=== PATIENT | male | born 1970 | race Caucasian/White ===

== ENCOUNTER 2021-08-27 14:17 | Inpatient (IN) | payer OTHER ==
[2021-08-27 15:45] VITALS: BMI 28.5
[2021-08-27] MEDS ORDERED: BISMUTH SUBSALICYLATE 524 MG/30 ML PO PRN (16:24)
[2021-08-27] MEDS ORDERED: IBUPROFEN 400 MG TABLET (FP) PO PRN (16:24)
[2021-08-27] MEDS ORDERED: MAGNESIUM CITRATE 300 ML BOTTLE PO PRN (16:24)
[2021-08-27] MEDS ORDERED: NICOTINE 10 MG CARTRIDGE (INHALER) IH PRN (16:24)
[2021-08-27] MEDS ORDERED: MAG HYDROX/AL HYDROX/SIMETH 30 ML UNIT-DOSE CUP PO PRN (16:24)
[2021-08-27] MEDS ORDERED: ACETAMINOPHEN 325 MG TABLET (FP) PO PRN (16:24)
[2021-08-27] MEDS ORDERED: METHOCARBAMOL 500 MG TABLET PO PRN (16:24)
[2021-08-27] MEDS ORDERED: diazePAM 5 MG TABLET PO PRN (16:24)
[2021-08-27] MEDS ORDERED: MAGNESIUM HYDROX 2400MG/30ML ORAL SUSPENSION 30 ML CUP PO PRN (16:24)
[2021-08-27] MEDS ORDERED: ONDANSETRON *ODT* 4 MG TABLET SL PRN (16:24)
[2021-08-27] MEDS ORDERED: MENTHOL/PHENOL 1 EACH UD MM PRN (16:24)
[2021-08-27] MEDS: diazePAM 5 MG TABLET PO SCH ×2 (18:20→22:29)
[2021-08-27] MEDS: hydrOXYzine PAMOATE 25 MG CAPSULE (FP) PO SCH ×2 (18:22→22:29)
[2021-08-27] MEDS: MELATONIN 5 MG TABLETS PO SCH (22:29)
[2021-08-27] MEDS: THIAMINE HCL 100 MG TABLET (FP) PO SCH (22:29)
[2021-08-28] MEDS: hydrOXYzine PAMOATE 25 MG CAPSULE (FP) PO SCH ×5 (06:07→22:21)
[2021-08-28] MEDS: diazePAM 5 MG TABLET PO SCH ×4 (06:08→22:21)
[2021-08-28] MEDS: PRENATAL VITAMINS W/ FOLIC ACID TABLET (FP) PO SCH (10:28)
[2021-08-28 12:42] LABS: HEMATOCRIT 41.2 % (35.4-49); HEMOGLOBIN 14.2 GM/dL (11.7-16.9); MCH 31.4 pg (25.7-33.7); MCHC 34.5 g/dl (32.0-35.9); MEAN CELL VOLUME 91.1 fl (80-96); MEAN PLT VOLUME 9.8 fl (7.5-11.1); PLATELET COUNT 141 10^3/uL (134-434); RBC 4.52 M/mm3 (4.00-5.60); RDW 12.6 % (11.9-15.9); WHITE BLOOD COUNT 5.5 K/mm3 (4.0-10.0)
[2021-08-28 12:52] LABS: ALBUMIN 3.2 g/dl (3.4-5.0); CALCIUM 8.8 mg/dL (8.5-10.1)
[2021-08-28 12:53] LABS: BLOOD UREA NITROGEN 15.5 mg/dL (7-18)
[2021-08-28 12:56] LABS: CREATININE 1.1 mg/dL (0.55-1.3)
[2021-08-28 12:57] LABS: BILIRUBIN,TOTAL 0.4 mg/dL (0.2-1); TOT PROT 6.3 g/dl (6.4-8.2)
[2021-08-28] MEDS: MELATONIN 5 MG TABLETS PO SCH (22:20)
[2021-08-28] MEDS: THIAMINE HCL 100 MG TABLET (FP) PO SCH (22:21)
[2021-08-29] MEDS: diazePAM 5 MG TABLET PO SCH ×3 (06:00→22:28)
[2021-08-29] MEDS: ACETAMINOPHEN 325 MG TABLET (FP) PO PRN (06:02)
[2021-08-29] MEDS: hydrOXYzine PAMOATE 25 MG CAPSULE (FP) PO SCH ×5 (06:04→22:28)
[2021-08-29] MEDS: PRENATAL VITAMINS W/ FOLIC ACID TABLET (FP) PO SCH (10:21)
[2021-08-29] MEDS ORDERED: SUVOREXANT 10 MG TABLET PO PRN (22:00)
[2021-08-29] MEDS: THIAMINE HCL 100 MG TABLET (FP) PO SCH (22:27)
[2021-08-29] MEDS: MELATONIN 5 MG TABLETS PO SCH (22:28)
[2021-08-30] MEDS: ACETAMINOPHEN 325 MG TABLET (FP) PO PRN ×3 (01:27→22:12)
[2021-08-30] MEDS: hydrOXYzine PAMOATE 25 MG CAPSULE (FP) PO SCH ×5 (05:46→22:10)
[2021-08-30] MEDS: diazePAM 5 MG TABLET PO SCH ×2 (05:46→17:35)
[2021-08-30] MEDS: PRENATAL VITAMINS W/ FOLIC ACID TABLET (FP) PO SCH (10:09)
[2021-08-30] MEDS ORDERED: SUVOREXANT 10 MG TABLET PO PRN (22:00)
[2021-08-30] MEDS ORDERED: SUVOREXANT 15 MG TABLET PO PRN (22:00)
[2021-08-30] MEDS: THIAMINE HCL 100 MG TABLET (FP) PO SCH (22:10)
[2021-08-31] MEDS: hydrOXYzine PAMOATE 25 MG CAPSULE (FP) PO SCH ×2 (05:14→10:09)
[2021-08-31] MEDS ORDERED: diazePAM 5 MG TABLET PO ONE (06:00)
[2021-08-31 09:45] VITALS: BP 144/93; PULSE 58; TEMP 97.4
[2021-08-31] MEDS: PRENATAL VITAMINS W/ FOLIC ACID TABLET (FP) PO SCH (10:09)
== END 2021-08-31 11:25 | disposition other institution (70) | DRG 775 ==
LOC: YASAS 14:17 → Y6N 16:58
PROVIDERS: ADMIT Allergy & Immunology; ATTEND Allergy & Immunology
PROC: HZ2ZZZZ Detoxification Services for Substance Abuse Treatment (ICD-10-PCS; principal; 2021-08-27)
DX: F13.230 Sedative, hypnotic or anxiolytic dependence with withdrawal, uncomplicated (principal); F10.10 Alcohol abuse, uncomplicated; F43.10 Post-traumatic stress disorder, unspecified; F19.24 Other psychoactive substance dependence with psychoactive substance-induced mood disorder; F19.282 Other psychoactive substance dependence with psychoactive substance-induced sleep disorder; F19.280 Other psychoactive substance dependence with psychoactive substance-induced anxiety disorder; I10 Essential (primary) hypertension; Z87.891 Personal history of nicotine dependence; Z62.810 Personal history of physical and sexual abuse in childhood; Z56.0 Unemployment, unspecified
CPT/HCPCS: 36415; 71045-TC-FY; 80053; 85027; 86780; C9803; U0003; U0005

== ENCOUNTER 2021-08-31 11:34 | Inpatient (IN) | payer OTHER ==
[2021-08-31] MEDS ORDERED: MAGNESIUM HYDROX 2400MG/30ML ORAL SUSPENSION 30 ML CUP PO PRN (12:43)
[2021-08-31] MEDS ORDERED: LOPERAMIDE HCL 2 MG CAPSULE PO PRN (12:43)
[2021-08-31] MEDS ORDERED: guaiFENesin 200 MG/10 ML 10 ML UNIT-DOSE CUPS PO PRN (12:43)
[2021-08-31] MEDS ORDERED: ACETAMINOPHEN 325 MG TABLET (FP) PO PRN (12:43)
[2021-08-31] MEDS ORDERED: MAG HYDROX/AL HYDROX/SIMETH 30 ML UNIT-DOSE CUP PO PRN (12:43)
[2021-08-31] MEDS ORDERED: IBUPROFEN 400 MG TABLET (FP) PO PRN (12:43)
[2021-08-31] MEDS ORDERED: MAGNESIUM CITRATE 300 ML BOTTLE PO PRN (12:43)
[2021-08-31] MEDS ORDERED: P-EPHED 60MG/TRIPROLIDI 2.5MG TABLET PO PRN (12:43)
[2021-08-31] MEDS ORDERED: NICOTINE 10 MG CARTRIDGE (INHALER) IH PRN (12:43)
[2021-08-31 16:18] VITALS: BMI 28.5
[2021-08-31] MEDS: hydrOXYzine PAMOATE 25 MG CAPSULE (FP) PO PRN (21:18)
[2021-08-31] MEDS ORDERED: THIAMINE HCL 100 MG TABLET (FP) PO SCH (22:00)
[2021-08-31] MEDS ORDERED: MELATONIN 5 MG TABLETS PO SCH (22:00)
[2021-08-31] MEDS ORDERED: cloNIDine HCL 0.1 MG TABLET PO ONE (23:10)
[2021-09-01] MEDS: hydrOXYzine PAMOATE 25 MG CAPSULE (FP) PO PRN (06:34)
[2021-09-01 07:36] VITALS: BP 159/99; PULSE 61; TEMP 98.6
[2021-09-01] MEDS ORDERED: PRENATAL VITAMINS W/ FOLIC ACID TABLET (FP) PO SCH (10:00)
== END 2021-09-01 10:00 | disposition left against medical advice (07) | DRG 770 ==
LOC: YASAS 11:34 → Y3W 11:37
PROVIDERS: ADMIT Allergy & Immunology; ATTEND Allergy & Immunology
PROC: HZ42ZZZ Group Counseling for Substance Abuse Treatment, Cognitive-Behavioral (ICD-10-PCS; principal; 2021-08-31)
DX: F13.20 Sedative, hypnotic or anxiolytic dependence, uncomplicated (principal); F10.10 Alcohol abuse, uncomplicated; I10 Essential (primary) hypertension; Z87.891 Personal history of nicotine dependence
CPT/HCPCS: J0735